=== PATIENT | female | born 1995 | race Caucasian/White ===

== ENCOUNTER 2017-05-05 13:13 | Emergency (ER) | payer OTHER ==
[2017-05-05 13:38] VITALS: RESP 16
[2017-05-05] MEDS ORDERED: DIAZEPAM 5 MG TAB PO STA (14:13)
[2017-05-05] MEDS ORDERED: KETOROLAC 60 MG/2 ML VIAL IM STA (14:13)
--- NOTE | 2017-05-05 14:19 | ED ---
General Adult HPI - General Chief complaint: Back Pain/Injury Stated complaint: Back Pain Time Seen by Provider: 05/05/17 13:54 Source: patient, RN notes reviewed Mode of arrival: wheelchair Limitations: no limitations - History of Present Illness Initial comments: Patient 22-year-old female who presents emergency room today with a chief complaint of increased lower back pain. She does admit to some discomfort yesterday but increased this morning after waking up. She does admit that it's located on the right side and lower back that radiates down the right leg. Does admit that she was diagnosed with sciatica in the past. Patient states that she's tried some Tylenol at home with little relief the symptoms. Patient denies any injury or trauma. Denies any bowel or bladder incontinence retention. Denies any saddle anesthesia. Patient denies any recent fever, chills, shortness of breath, chest pain, abdominal pain, nausea or vomiting, dysuria or hematuria, constipation or diarrhea, headaches or visual changes, or any other complaints. - Related Data Home Medications Medication Instructions Recorded Confirmed Acetaminophen Tab [Tylenol Tab] 650 mg PO Q6H PRN 05/05/17 05/05/17 Ibuprofen [Advil] 600 mg PO Q6HR PRN 05/05/17 05/05/17 Previous Rx's Medication Instructions Recorded Cyclobenzaprine [Flexeril] 10 mg PO TID #20 tab 05/05/17 Ibuprofen [Motrin] 600 mg PO Q6HR PRN #40 day 05/05/17 Allergies Allergy/AdvReac Type Severity Reaction Status Date / Time latex Allergy Rash/Hives Verified 05/05/17 13:53 Milk Containing Products Allergy Diarrhea Verified 05/05/17 13:53 [Dairy] Pork/Porcine Containing AdvReac Unknown Verified 05/05/17 13:53 Products [Pork] Review of Systems ROS Statement: Those systems with pertinent positive or pertinent negative responses have been documented in the HPI. ROS Other: All systems not noted in ROS Statement are negative. Past Medical History Past Medical History: No Reported History History of Any Multi-Drug Resistant Organisms: None Reported Date of last positivie culture/infection: 2004 MDRO Source:: respiratory Past Surgical History: No Surgical Hx Reported Past Anesthesia/Blood Transfusion Reactions: No Reported Reaction Past Psychological History: No Psychological Hx Reported Smoking Status: Former smoker Past Alcohol Use History: Occasional Past Drug Use History: None Reported, Marijuana - Past Family History Mother Family Medical History: No Reported History General Exam - General Exam Comments Initial Comments: General: The patient is awake and alert, in no distress, and does not appear acutely ill. Eye: Pupils are equal, round and reactive to light, extra-ocular movements are intact. No nystagmus. There is normal conjunctiva bilaterally. No signs of icterus. Ears, nose, mouth and throat: There are moist mucous membranes and no oral lesions. Neck: The neck is supple, there is no tenderness or JVD. Cardiovascular: There is a regular rate and rhythm. No murmur, rub or gallop is appreciated. Respiratory: Lungs are clear to auscultation, respirations are non-labored, breath sounds are equal. No wheezes, stridor, rales, or rhonchi. Gastrointestinal: Soft, non-distended, non-tender abdomen without masses or organomegaly noted. There is no rebound or guarding present. No CVA tenderness. Bowel sounds are unremarkable. Musculoskeletal: Normal ROM. Normal appearance of cervical, thoracic, lumbar spine. No step-offs deformities appreciated. No tenderness midline over the spinous processes. Patient does have tenderness to the paravertebral areas of the right lower lumbar. Strength 5/5. Sensation intact. Pulses equal bilaterally 2+. Neurological: A&O x 3. CN II-XII intact, There are no obvious motor or sensory deficits. Coordination appears grossly intact. Speech is normal. Skin: Skin is warm and dry and no rashes or lesions are noted. Psychiatric: Cooperative, appropriate mood & affect, normal judgment. Limitations: no limitations Course Vital Signs 05/05/17 13:35 Temperature 97.7 F Pulse Rate 90 Respiratory 16 Rate Blood Pressure 133/86 O2 Sat by Pulse 99 Oximetry Medical Decision Making - Medical Decision Making Patient reexamined at this time shows no signs of distress. Feeling better will Valium here in the emergency room. Patient is advised to follow family doctor for further evaluation possible MRI. Advised return to emergency room if any symptoms increase worsen. Patient will be continued on anti- inflammatories and muscle relaxant. Advised must/may make her drowsy. Advised return for any other concerns she states understanding and is in agreement. Disposition Clinical Impression: Acute low back pain Disposition: HOME SELF-CARE Condition: Good Instructions: Acute Low Back Pain (ED) Additional Instructions: Please use medication as discussed. Please be aware that muscle relaxant may make you drowsy. Please follow-up with orthopedic/family doctor as discussed for further evaluation. Please return to emergency room if the symptoms increase or worsen or for any other concerns. Prescriptions: Cyclobenzaprine [Flexeril] 10 mg PO TID #20 tab Ibuprofen [Motrin] 600 mg PO Q6HR PRN #40 day PRN Reason: Pain Referrals: None,Stated [Primary Care Provider] - 1-2 days Lory Terrell MD [STAFF PHYSICIAN] - 1-2 days Gil Claros DO [Doctor of Osteopathic Medicine] - 1-2 days Time of Disposition: 14:59
[2017-05-05 15:19] VITALS: BP 117/55; PULSE 68; TEMP 98.2
== END 2017-05-05 15:28 | disposition home or self-care (01) ==
LOC: EC 13:13
DX: M54.5 Low back pain (principal); Z87.891 Personal history of nicotine dependence; Z91.040 Latex allergy status; Z91.011 Allergy to milk products; Z91.018 Allergy to other foods
CPT/HCPCS: 99283 ×2; 96372 ×2; J1885